=== PATIENT | male | born 2000 | race Caucasian/White ===

== ENCOUNTER 2023-03-24 19:24 | Emergency (ER) | payer SELFPAY ==
[~2023-03-24] VITALS: Ht 182.9 cm; Wt 59.1 kg
[2023-03-24 19:38] VITALS: TEMP 98.5
[2023-03-24] MEDS ORDERED: BUPR1FIL SL (19:50)
[2023-03-24 22:47] LABS: APPEARANCE,URINE CLEAR (CLEAR); BILIRUBIN,URINE NEGATIVE (NEGATIVE); GLUCOSE, URINE (UA) NEGATIVE (NEGATIVE); KETONES,URINE NEGATIVE (NEGATIVE); LEUKOCYTE ESTERASE ,URINE NEGATIVE (NEGATIVE); NITRATE,URINE NEGATIVE (NEGATIVE); OCCULT BLOOD,URINE NEGATIVE (NEGATIVE); PH,URINE 6.5 (5.0-8.0); PROTEIN,URINE NEGATIVE (NEGATIVE); UROBILINOGEN,URINE <=1.0 mg/dL (<=1.0)
[2023-03-24 23:00] VITALS: BP 114/65; PULSE 79; RESP 15
[2023-03-24 23:10] LABS: BACTERIA,URINE None Seen /HPF (None Seen); RBC,URINE None Seen /HPF (0-2); SQUAMOUS EPITHELIAL CELL,UR None Seen /LPF (None Seen); WBC,URINE None Seen /HPF (0-5)
== END 2023-03-24 23:43 | disposition home or self-care (01) ==
LOC: EMS 19:26
DX: S22.41XA Multiple fractures of ribs, right side, initial encounter for closed fracture (principal); F17.210 Nicotine dependence, cigarettes, uncomplicated; X58.XXXA Exposure to other specified factors, initial encounter; Y93.89 Activity, other specified; Y92.89 Other specified places as the place of occurrence of the external cause; Y99.8 Other external cause status
CPT/HCPCS: 71101; 81001; 99284; Z7502